=== PATIENT | male | born 2000 | race African-American/Black ===

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

== ENCOUNTER 2020-01-11 03:09 | Emergency (ER) | payer SELFPAY ==
[2020-01-11] MEDS ORDERED: Ondansetron ODT 4 MG TAB ONE (03:45)
== END 2020-01-11 03:55 | disposition home or self-care (01) ==
LOC: NAV ERS 03:09
DX: R11.2 Nausea with vomiting, unspecified (principal); R19.7 Diarrhea, unspecified; D50.9 Iron deficiency anemia, unspecified; Z79.899 Other long term (current) drug therapy
CPT/HCPCS: 99283; Q0162

== ENCOUNTER 2021-05-25 02:37 | Emergency (ER) | payer SELFPAY ==
[2021-05-25] MEDS ORDERED: Lidocaine 1% (PF) 30 ML VIAL ONE (02:58)
[2021-05-25] MEDS ORDERED: Sodium Chloride 0.9% 250 ML 250 ML ONE (03:00)
[2021-05-25 03:01] LABS: INR-International Normal Ratio 1.1; PTT 28.2 sec (22.9-36.1); Prothrombin Time 14.6 sec (12.0-14.7)
[2021-05-25 03:02] LABS: Hemoglobin 13.2 g/dL (14.0-18.0); Mean Corpuscular HGB CONC 32.1 g/dL (32.0-36.0); Mean Corpuscular Hemoglobin 29.2 pg (25.0-35.0); Mean Corpuscular Volume 91.1 fL (78.0-98.0); Mean Platelet Volume 6.6 fL (7.4-10.4); Platelet Count 284 thou/uL (130-400); RBC Distribution Width 11.3 % (11.5-14.5); Red Blood Cell (RBC) Count 4.53 mill/uL (4.00-5.20)
[2021-05-25 03:08] LABS: ALT (SGPT) 18 U/L (8-55); AST (SGOT) 20 U/L (5-34); Albumin 3.8 g/dL (3.5-5.0); Alkaline Phosphatase 52 U/L (50-130); Anion Gap 18 mmol/L (10-20); BUN (Urea Nitrogen) 17 mg/dL (8.9-20.6); Bilirubin, Total 0.5 mg/dL (0.2-1.2); Calc. Creatinine Clearance 0 mL/min (70-130); Carbon Dioxide 22 mmol/L (22-29); Chloride 102 mmol/L (98-107); Glucose 93 mg/dL (70-105); Protein, Total 6.8 g/dL (6.0-8.3); Sodium 139 mmol/L (136-145)
[2021-05-25 03:17] LABS: Band 1 % (5-11); Eosinophils 1 % (0-10); Lymphocytes 56 % (28-48); MDiff Complete? YES; Monocytes 5 % (0-4); Neutrophil 37 % (31-61); Platelet Morphology Comment Appears Adequate; RBC Morphology Normal
[2021-05-25 03:26] LABS: Potassium 2.8 mmol/L (3.5-5.1)
== END 2021-05-25 03:30 | disposition short-term general hospital (02) ==
LOC: NAV ERS 02:37
DX: S71.132A Puncture wound without foreign body, left thigh, initial encounter (principal); I95.9 Hypotension, unspecified; E87.6 Hypokalemia; W34.00XA Accidental discharge from unspecified firearms or gun, initial encounter
CPT/HCPCS: 36415; 36430; 80053; 80307; 85025; 85610; 85730; 86850; 86900; 86901; 93005; 96365; 96375; J2001; J7050; P9016

== ENCOUNTER 2021-06-01 15:48 | Outpatient (CLI) | payer OTHER ==
[2021-06-01 16:18] LABS: #Eosinphils 0.2 thou/uL (0.0-0.7); #Lymphocytes 1.5 thou/uL (1.20-3.40); #Monocytes 0.7 thou/uL (0.11-0.59); #Neutrophils 4.7 thou/uL (1.40-6.50); %Basophils 0.6 % (0.0-1.0); %Eosinophils 2.9 % (0.0-10.0); %Lymphocytes 21.1 % (28.0-48.0); %Monocytes 9.2 % (0.0-4.0); %Neutrophils 66.2 % (31.0-61.0); Hemoglobin 9.1 g/dL (14.0-18.0); Mean Corpuscular HGB CONC 32.6 g/dL (32.0-36.0); Mean Corpuscular Hemoglobin 29.9 pg (25.0-35.0); Mean Corpuscular Volume 91.7 fL (78.0-98.0); Mean Platelet Volume 5.8 fL (7.4-10.4); Platelet Count 289 thou/uL (130-400); RBC Distribution Width 13.2 % (11.5-14.5); Red Blood Cell (RBC) Count 3.04 mill/uL (4.00-5.20); White Blood Cell (WBC) Count 7.1 thou/uL (4.8-10.8)
== END 2021-06-01 15:49 | disposition home or self-care (01) ==
LOC: NAV LAB 15:48
PROVIDERS: ATTEND Surgery
DX: S81.802A Unspecified open wound, left lower leg, initial encounter (principal); W34.00XA Accidental discharge from unspecified firearms or gun, initial encounter
CPT/HCPCS: 36415; 85025

== ENCOUNTER 2021-06-12 19:24 | Emergency (ER) | payer OTHER, SELFPAY ==
[2021-06-12] MEDS ORDERED: Ketorolac Tromethamine 30 MG/ML VIAL ONE (20:45)
== END 2021-06-12 21:20 | disposition home or self-care (01) ==
LOC: NAV ERS 19:24
DX: G89.18 Other acute postprocedural pain (principal); M25.532 Pain in left wrist; D50.9 Iron deficiency anemia, unspecified; Z79.82 Long term (current) use of aspirin; Z79.899 Other long term (current) drug therapy
CPT/HCPCS: 96372; 99283; J1885

== ENCOUNTER 2022-06-02 12:08 | Outpatient (CLI) | payer BC | END 2022-06-02 12:09 | disposition home or self-care (01) | LOC: NAV RAD 12:08 | PROVIDERS: ATTEND Nurse Practitioner Family | DX: M25.572 Pain in left ankle and joints of left foot (principal) ==

== ENCOUNTER 2023-04-29 20:45 | Emergency (ER) | payer BC | END 2023-04-29 21:38 | disposition home or self-care (01) | LOC: NAV ERS 20:45 | DX: R07.9 Chest pain, unspecified (principal); F12.10 Cannabis abuse, uncomplicated | CPT/HCPCS: 71046; 93005 ==